=== PATIENT | female | born 1985 ===

== ENCOUNTER 2021-01-12 23:49 | Emergency (ER) | payer MEDICAID, OTHER ==
[~2021-01-12] VITALS: Ht 170.2 cm; Wt 100.5 kg
--- NOTE | 2021-01-12 23:56 | NUR ---
NIL X1 WHEN CALLED FOR TRIAGE
[2021-01-13 00:08] VITALS: BP 131/84
--- NOTE | 2021-01-13 00:50 | NUR ---
Patient given discharge instructions and they have confirmed that they understand the instructions. Patient ambulatory with steady gait. NAD, all questions answered appropriately, denies additional needs at this time. No personal belongings left in room after discharge.
== END 2021-01-13 00:52 | disposition home or self-care (01) ==
LOC: ED 23:59
DX: N61.0 Mastitis without abscess (principal); L03.311 Cellulitis of abdominal wall; F17.210 Nicotine dependence, cigarettes, uncomplicated
CPT/HCPCS: 99406